=== PATIENT | male | born 1985 | race Two or more races ===

== ENCOUNTER 2021-11-25 09:39 | Emergency (ER) | payer BC, OTHER ==
[~2021-11-25] VITALS: Ht 175.3 cm; Wt 92.5 kg
[2021-11-25 09:42] VITALS: BP 147/83
== END 2021-11-25 10:44 | disposition left against medical advice (07) ==
LOC: ER 09:39
DX: L60.0 Ingrowing nail (principal); Z53.21 Procedure and treatment not carried out due to patient leaving prior to being seen by health care provider